=== PATIENT | female | born 1940 | race Caucasian/White ===

== ENCOUNTER 2019-01-17 05:41 | Emergency (ER) | payer OTHER ==
[2019-01-17] MEDS: ACETAMINOPHEN 500 MG TAB PO (06:33)
[2019-01-17] MEDS: DIPHTH/TET/ACEL PERTUSS (ADULT) 0.5 ML VIAL IM* (07:33)
== END 2019-01-17 08:14 | disposition home or self-care (01) ==
LOC: FTE 08:14
DX: S42.291A Other displaced fracture of upper end of right humerus, initial encounter for closed fracture (principal); S01.111A Laceration without foreign body of right eyelid and periocular area, initial encounter; V81.4XXA Person injured while boarding or alighting from railway train or railway vehicle, initial encounter; Z23 Encounter for immunization; Z87.891 Personal history of nicotine dependence
CPT/HCPCS: 29105; 70450; 70480; 73030-RT; 73080-RT; 90471; 90715; 99284-25